=== PATIENT | female | born 2000 | race African-American/Black ===

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

== ENCOUNTER 2020-09-26 15:15 | Inpatient (IN) ==
[2020-09-26] MEDS ORDERED: SODIUM CHLORIDE 0.9% 1,000 ML IV SCH ×2 (15:30→19:00)
[2020-09-26] MEDS ORDERED: OXYTOCIN 10 UNIT/ML VIAL ONE ×2 (15:35→16:24)
[2020-09-26] MEDS ORDERED: HYDROmorphone 2 MG/1 ML VIAL ONE (15:46)
[2020-09-26] MEDS ORDERED: ONDANSETRON 4 MG/2 ML VIAL ONE (15:46)
[2020-09-26 15:53] LABS: Basophils # 0.1 10*3/uL (0.0-0.2); Basophils % 0.4 % (0.0-0.8); Eosinophils % 0.1 % (0.00-10.9); Hematocrit 31.2 VOL% (35.7-47.0); Hemoglobin 9.8 GM/DL (12.0-16.0); Immature Granulocytes % 3.1 %; Immature Granulocytes Absolute 0.87 #; Lymphocytes # 4.4 10*3/uL (1.4-4.0); Lymphocytes % 15.6 % (21.3-54.2); Mean Corpuscular HGB Conc 31.4 GM/DL (32-36); Mean Corpuscular Volume 82.8 FL (87-102); Monocytes % 3.9 % (1.7-12.7); Neutrophils % 76.9 % (38.7-73.9); Platelet Count 407 T/CUMM (130-400); Red Blood Count 3.77 MC/CUMM (3.8-5.5); Red Cell Distribution Width 16.3 % (9.3-17.3); White Blood Count 28.3 T/CUMM (4-12)
[2020-09-26] MEDS ORDERED: ONDANSETRON 4 MG/2 ML VIAL IV STA (15:59)
[2020-09-26] MEDS ORDERED: HYDROmorphone 2 MG/1 ML VIAL IV STA (15:59)
[2020-09-26] MEDS ORDERED: OXYTOCIN 20 UNIT in SODIUM CHLORIDE 0.9% 1,000 ML IV SCH (16:00)
[2020-09-26] MEDS ORDERED: SODIUM CHLORIDE 0.9% 1,000 ML IV STA (16:00)
[2020-09-26] MEDS ORDERED: propofoL 200 MG/20 ML VIAL IV ONE (16:01)
[2020-09-26] MEDS ORDERED: LIDOCAINE 2% 5 ML VIAL ONE (16:01)
[2020-09-26] MEDS ORDERED: MIDAZOLAM 2 MG/2 ML VIAL ONE (16:01)
[2020-09-26] MEDS ORDERED: SUCCINYLCHOLINE 200 MG/10 ML VIAL ONE (16:01)
[2020-09-26] MEDS ORDERED: fentaNYL 100 MCG/2 ML VIAL ONE (16:02)
[2020-09-26 16:05] LABS: PT Patient Result 11.2 SECS (10.5-12.0); Partial Thromboplastin Time 25.4 SECS (23.9-33.8)
[2020-09-26] MEDS ORDERED: diphenhydrAMINE 50 MG/1 ML VIAL IV PRN (16:08)
[2020-09-26] MEDS ORDERED: PROMETHAZINE INJ 25 MG in SODIUM CHLORIDE 0.9% 50 ML IV PRN (16:08)
[2020-09-26] MEDS ORDERED: HYDROmorphone 2 MG/1 ML VIAL IV PRN (16:08)
[2020-09-26] MEDS ORDERED: ONDANSETRON 4 MG/2 ML VIAL IV PRN ×2 (16:08→16:59)
[2020-09-26] MEDS ORDERED: MEPERIDINE 25 MG/1 ML VIAL IV PRN (16:08)
[2020-09-26] MEDS ORDERED: KETAMINE 500 MG/10 ML VIAL ONE (16:11)
[2020-09-26] MEDS ORDERED: SODIUM CHLORIDE 0.9% 1,000 ML IV PRN ×2 (16:11→16:57)
[2020-09-26 16:17] LABS: Alanine Aminotransferase < 6 U/L (13-56); Albumin 2.2 G/DL (3.4-5.0); Alkaline Phosphatase 44 U/L (45-117); Aspartate Amino Transferase 13 U/L (0-37); Bilirubin,Total < 0.39 MG/DL (0.20-1.00); Blood Urea Nitrogen 9 MG/DL (7-18); Calcium 8.5 MG/DL (8.5-10.1); Carbon Dioxide 18 MMOL/L (21-32); Estimated Glom Filtration Rate 116 ML/MIN; Glucose 148 MG/DL (74-106); Osmolality,Calculated 276.7 MOS/KG (273-304); Potassium 3.4 MMOL/L (3.5-5.1); Sodium 138 MMOL/L (136-145); Total Protein 6.1 G/DL (6.4-8.2)
[2020-09-26 16:18] LABS: Band Neutrophils 5 % (0-10); Lymphocytes 10 % (20-55); Metamyelocytes 1 %; Myelocytes 1 %; Segmented Neutrophils 80 % (50-85); Total Cells Counted 100
[2020-09-26 16:19] LABS: Anisocytosis 1+; Atypical Lymphocytes 1+; Hypochromasia Slight; Macrocytosis Slight; Microcytosis 1+; Platelet Estimate Normal; Polychromasia 1+
[2020-09-26] MEDS ORDERED: METHYLERGONOVINE 0.2 MG/1 ML AMP ONE (16:19)
[2020-09-26] MEDS ORDERED: PHENYLEPHRINE DRIP 40 MG/250 ML PREMIX IV ONE (16:39)
[2020-09-26] MEDS ORDERED: LANOLIN 50% CREAM 0.3 OZ TUBE TOP PRN (16:59)
[2020-09-26] MEDS ORDERED: IBUPROFEN 800 MG TABLET PO PRN (16:59)
[2020-09-26] MEDS ORDERED: DIPH/TET/ACEL PERT BOOSTER VACCINE 0.5 ML VIAL IM ONE (16:59)
[2020-09-26] MEDS ORDERED: RHO(D) IMMUNE GLOBULIN 300 MCG SYRINGE IM ONE (16:59)
[2020-09-26] MEDS ORDERED: ACETAMINOPHEN 325 MG TABLET PO PRN (16:59)
[2020-09-26] MEDS ORDERED: OXYTOCIN/LR 20 UNIT/1,000 ML BAG IV ONE ×2 (16:59→17:13)
[2020-09-26] MEDS ORDERED: oxyCODONE/ACETAMINOPHEN 5-325 MG TABLET PO PRN ×2 (16:59)
[2020-09-26] MEDS ORDERED: HYDROCORTISONE 2.5% RECTAL CREAM 30 GM TUBE TOP PRN (16:59)
[2020-09-26] MEDS ORDERED: BENZOCAINE 20%/MENTHOL 0.5% SPRAY 56 GM CAN TOP PRN (16:59)
[2020-09-26] MEDS ORDERED: MEASLES/MUMPS/RUBELLA VACCINE 0.5 ML VIAL SUBCUT ONE (16:59)
[2020-09-26] MEDS ORDERED: BISACODYL 10 MG SUPP RECTAL PRN (16:59)
[2020-09-26] MEDS ORDERED: WITCH HAZEL PADS 100/JAR TOP PRN (16:59)
[2020-09-26] MEDS: DOCUSATE SODIUM 100 MG CAPSULE PO SCH (21:32)
[2020-09-27 02:07] LABS: Basophils % 0.2 % (0.0-0.8); Hematocrit 30.7 VOL% (35.7-47.0); Hemoglobin 10.3 GM/DL (12.0-16.0); Immature Granulocytes % 0.9 %; Immature Granulocytes Absolute 0.15 #; Lymphocytes # 2.8 10*3/uL (1.4-4.0); Lymphocytes % 17.2 % (21.3-54.2); Mean Corpuscular HGB Conc 33.6 GM/DL (32-36); Mean Corpuscular Volume 83.2 FL (87-102); Mean Platelet Volume 8.9 FL (9.6-12.0); Monocytes % 5.5 % (1.7-12.7); Neutrophils % 76.2 % (38.7-73.9); Platelet Count 179 T/CUMM (130-400); Red Blood Count 3.69 MC/CUMM (3.8-5.5); Red Cell Distribution Width 16.4 % (9.3-17.3); White Blood Count 16.1 T/CUMM (4-12)
[2020-09-27] MEDS: FUROSEMIDE 40 MG/4 ML VIAL IV SCH ×3 (02:42→15:14)
[2020-09-27] MEDS: DOCUSATE SODIUM 100 MG CAPSULE PO SCH (08:07)
[2020-09-27] MEDS ORDERED: RHO(D) IMMUNE GLOBULIN 300 MCG SYRINGE IM ONE (09:06)
[2020-09-27 11:57] VITALS: BP 109/50
== END 2020-09-27 17:30 | disposition home or self-care (01) | DRG 543 ==
LOC: N.ED 15:15 → N.EDINP 15:53 → N.OB 16:23
PROVIDERS: ADMIT Obstetrics & Gynecology; ATTEND Obstetrics & Gynecology